=== PATIENT | male | born 1995 | race Caucasian/White ===

== ENCOUNTER 2017-08-04 10:02 | Emergency (ER) | payer OTHER ==
[~2017-08-04] VITALS: Wt 100.3 kg
[~2017-08-04 10:02] MED LIST: ACET500C5 PO; FIORICET PO; POLY10DR19 RIGHT EYE
[2017-08-04 11:31] LABS: BASOPHILS % 0.1 % (0.0-2.0); EOSINOPHILS # 0.1 10^3/ul (0.0-0.5); EOSINOPHILS % 0.4 % (0.0-7.0); HEMOGLOBIN 15.2 g/dl (14.0-18.0); LYMPHOCYTES # 2.5 10^3/ul (0.8-2.9); LYMPHOCYTES % 17.9 % (15.0-51.0); MEAN CORPUSCULAR HEMOGLOBIN 27.5 pg (29.0-33.0); MEAN CORPUSCULAR HGB CONC 33.8 g/dl (32.0-37.0); MEAN CORPUSCULAR VOLUME 81.5 fl (82.0-101.0); MEAN PLATELET VOLUME 9.7 fl (7.4-10.4); MONOCYTE # 1.5 10^3/ul (0.3-0.9); MONOCYTES % 10.6 % (0.0-11.0); NEUTROPHIL # 9.7 10^3/ul (1.6-7.5); NEUTROPHILS % 70.8 % (39.0-77.0); PLATELET COUNT 346 10^3/UL (140-415); RED BLOOD COUNT 5.52 10^6/ul (4.70-6.10); WHITE BLOOD COUNT 13.7 10^3/ul (4.8-10.8)
[2017-08-04 12:00] LABS: BARBITURATES Negative (NEGATIVE); BENZODIAZEPINES Negative (NEGATIVE); CANNABINOIDS Negative (NEGATIVE); COCAINE Negative (NEGATIVE); OPIATES Negative (NEGATIVE)
[2017-08-04 12:00] LABS: ALBUMIN 4.4 g/dl (3.3-4.9); ALBUMIN/GLOBULIN RATIO 1.46; BILIRUBIN,INDIRECT 0.4 mg/dl (0-1.1); BILIRUBIN,TOTAL 0.4 mg/dl (0.2-1.3); CALCIUM 9.6 mg/dl (8.4-10.2); CREATININE 0.66 mg/dl (0.61-1.24); POTASSIUM 4.6 mmol/L (3.5-5.1); TOTAL PROTEIN 7.4 g/dl (6.1-8.1)
--- NOTE | 2017-08-04 12:46 | RADRPT ---
PROCEDURE: CT Brain without. CLINICAL INDICATION: Near syncope, tremor. TECHNIQUE: A CT of the brain was performed on multidetector high-resolution CT scanner utilizing a xial sections from the skull base through the vertex without contrast. The scan was reviewed in sof t tissue brain and high frequency resolution bone algorithm windows. Images were reviewed on a high -resolution PACS workstation. One or more the following does reduction techniques were utilized: Aut omated exposure control, adjustment of the mA/ or kV according to patient's size, or use of iterativ e reconstruction technique. The exam CTDI = 43.16 mGy and the DLP = 720.23 mGy-cm. DICOM images are available. COMPARISON: None available. FINDINGS: The ventricles and sulci are age-appropriate. There is no intracranial hemorrhage, mass effect or mi dline shift. No abnormal intra-axial or extra-axial fluid collections are seen. The lancaster/white arelis er differentiation is preserved. No acute skull abnormality is noted. The visualized paranasal sinus es are essentially clear. IMPRESSION: 1. No acute intracranial hemorrhage, transcortical infarction or mass effect. RPTAT: HH .Enid Gallegos MD, MD Date Time Electronically viewed and signed by .Enid Gallegos MD, MD on 08/04/2017 12:46 .N/
--- NOTE | 2017-08-04 16:02 | ERD ---
ER Documentation Chief Complaint Chief Complaint shaky, feels faint HPI 21-year-old male complaining of bilateral hand "shaky" 2-3 weeks. The symptom is constant. Patient said that she he started having the symptoms after he started working for [employer]. Patient reports weight loss of 60 pounds in the past 5 month since he started working. Patient also reports several episodes of feeling dizzy at work. States that he usually do not eat breakfast before start working. Denies syncope. Denies chest pain or palpitations. Denies spinning sensation. Patient reports drinking alcohol frequently, usually 5 beers a night. Occasionally more when he is partying. Patient stated that he had not been drinking any alcohol for last 2-3 weeks. Denies any history of diabetes, hypertension, or other medical issues. ROS All systems reviewed and are negative except as per history of present illness. Medications Home Meds Active Scripts Acetaminophen* (Tylophen*) 500 Mg Capsule, 1 CAP PO Q6H Y for PAIN AND OR ELEVATED TEMP, #20 CAP Prov:JARED JIMENEZ PA-C 08/26/16 Acetamin/Butalbital/Caffeine* (Fioricet*) [id number] Tab, 1 TAB PO Q6H Y for PAIN, #5 TAB Prov:JARED JIMENEZ PA-C 08/26/16 Polymyxin B Sulfate-TMP* (Polymyxin B-TMP Eye Drops*) 10 Ml Drops, 1 DROP RIGHT EYE QID for 7 Days, EA Prov:FIDEL DUMONT PA-C 03/21/16 Allergies Allergies: Coded Allergies: No Known Allergy (Unverified , 09/23/13) PMhx/Soc Medical and Surgical Hx: pt denies Medical Hx, pt denies Surgical Hx History of Surgery: No Anesthesia Reaction: No Hx Neurological Disorder: No Hx Respiratory Disorders: No Hx Cardiac Disorders: No Hx Psychiatric Problems: No Hx Miscellaneous Medical Probl: No Hx Alcohol Use: Yes (INTERMITTENT BINGE) Hx Substance Use: No Hx Tobacco Use: No Smoking Status: Never smoker Physical Exam Vitals Vital Signs Date Time Temp Pulse Resp B/P Pulse Ox O2 Delivery O2 Flow Rate FiO2 08/04/17 10:11 99.0 118 20 173/89 100 Physical Exam General: Well-developed, well-nourished, conscious and coherent, in no distress Skin: Warm and dry without rash, good texture and turgor Head: Normocephalic without evidence of trauma Eyes: Sclera and conjunctivae normal; pupils equal, round, and reactive to light; extraocular movements are intact Chest: Normal AP diameter. Good expansion without retractions. Nontender. Lungs are clear to auscultate bilaterally with good tidal volume Heart: Regular rate and rhythm. No murmur, rub, or gallops heard Abdomen: Soft and nontender without masses, guarding, or rebound. Bowel sounds are active. No hepatosplenomegaly Extremities: Full range of motion. Good strength bilaterally. No clubbing, cyanosis, or edema. Peripheral pulses are intact. Sensation intact. Barely discernible fine tremors in bilateral hands noted when arms are all stretched. Neuro: Alert and oriented 4, GCS 15. Cranial nerves grossly intact. Motor and sensory exams nonfocal. Moves all extremities. Speech clear. Gait normal Result Diagram: 08/04/17 1115 08/04/17 1115 Results 24 hrs Laboratory Tests Test 08/04/17 11:05 08/04/17 11:15 Urine Opiates Screen Negative Urine Barbiturates Negative Urine Amphetamines Screen Negative Urine Benzodiazepines Screen Negative Urine Cocaine Screen Negative Urine Cannabinoids Negative White Blood Count 13.710^3/ul Red Blood Count 5.5210^6/ul Hemoglobin 15.2g/dl Hematocrit 45.0% Mean Corpuscular Volume 81.5fl Mean Corpuscular Hemoglobin 27.5pg Mean Corpuscular Hemoglobin Concent 33.8g/dl Red Cell Distribution Width 13.0% Platelet Count 84683^3/UL Mean Platelet Volume 9.7fl Neutrophils % 70.8% Lymphocytes % 17.9% Monocytes % 10.6% Eosinophils % 0.4% Basophils % 0.1% Nucleated Red Blood Cells % 0.0/100WBC Neutrophils # 9.710^3/ul Lymphocytes # 2.510^3/ul Monocytes # 1.510^3/ul Eosinophils # 0.110^3/ul Basophils # 0.010^3/ul Nucleated Red Blood Cells # 0.010^3/ul Sodium Level 142mmol/L Potassium Level 4.6mmol/L Chloride Level 105mmol/L Carbon Dioxide Level 26mmol/L Anion Gap 16 Blood Urea Nitrogen 13mg/dl Creatinine 0.66mg/dl Glucose Level 104mg/dl Calcium Level 9.6mg/dl Total Bilirubin 0.4mg/dl Direct Bilirubin 0.00mg/dl Indirect Bilirubin 0.4mg/dl Aspartate Amino Transf (AST/SGOT) 36IU/L Alanine Aminotransferase (ALT/SGPT) 57IU/L Alkaline Phosphatase 113IU/L Total Protein 7.4g/dl Albumin 4.4g/dl Globulin 3.00g/dl Albumin/Globulin Ratio 1.46 PROCEDURE: CT Brain without. CLINICAL INDICATION: Near syncope, tremor. TECHNIQUE: A CT of the brain was performed on multidetector high-resolution CT scanner utilizing axial sections from the skull base through the vertex without contrast. The scan was reviewed in soft tissue brain and high frequency resolution bone algorithm windows. Images were reviewed on a high- resolution PACS workstation. One or more the following does reduction techniques were utilized: Automated exposure control, adjustment of the mA/ or kV according to patient's size, or use of iterative reconstruction technique. The exam CTDI = 43.16 mGy and the DLP = 720.23 mGy-cm. DICOM images are available. COMPARISON: None available. FINDINGS: The ventricles and sulci are age-appropriate. There is no intracranial hemorrhage, mass effect or midline shift. No abnormal intra-axial or extra- axial fluid collections are seen. The lancaster/white matter differentiation is preserved. No acute skull abnormality is noted. The visualized paranasal sinuses are essentially clear. IMPRESSION: 1. No acute intracranial hemorrhage, transcortical infarction or mass effect. RPTAT: HH .Enid Gallegos MD, MD Date Time Electronically viewed and signed by .Enid Gallegos MD, MD on 08/04/2017 12: 46 .N/ CC: PATRICIA CHAVEZ [employer] INTERACTIVE [employer] Procedures/MDM Well-appearing 21-year-old male present ED with tremors in his bilateral hands 2-3 weeks. CBC, CMP, and CT head are unremarkable. Urine drug screen is negative. EKG: sinus rhythm with sinus arrhythmia, rate 94 bpm, normal axis. Short TX interval of [address] segment elevation or depression. No ectopic beats. No QT prolongation. No other EKG abnormalities. EKG read by Dr. Glez. I suspect patient's tremor may be related to alcohol withdrawal. I doubt brain tumor, stroke, Parkinson's. Patient did present with elevated blood pressure of 173/89. Repeat vital signs were requested to the nursing staff but was not done. I doubt patient has hypertensive emergency. Alcohol cessation counseling provided to the patient. Patient also advised to follow-up with his PCP for blood pressure monitoring and management. Patient appears well, stable for discharge and outpatient management. Medical decision making shared with patient and family. Education provided to patient and family. Patient and family expressed understanding of the plan. Medications on discharge: None. Follow-up: Primary care provider in 2-3 days or return to ED if worse. The case was reviewed and discussed with Dr. Glez, who agrees with the plan of care. Disclaimer: Inadvertent spelling and grammatical errors are likely due to EHR/ dictation software use and do not reflect on the overall quality of patient care. Also, please note that the electronic time recorded on this note does not necessarily reflect the actual time of the patient encounter. Departure Diagnosis: Primary Impression: Tremor Condition: Stable Patient Instructions: Signs of Alcohol Addiction (Alcoholism), Alcohol Withdrawal: What to Expect Referrals: [facility] YOU HAVE RECEIVED A MEDICAL SCREENING EXAM AND THE RESULTS INDICATE THAT YOU DO NOT HAVE A CONDITION THAT REQUIRES URGENT TREATMENT IN THE EMERGENCY DEPARTMENT. FURTHER EVALUATION AND TREATMENT OF YOUR CONDITION CAN WAIT UNTIL YOU ARE SEEN IN YOUR DOCTORS OFFICE WITHIN THE NEXT 1-2 DAYS. IT IS YOUR RESPONSIBILITY TO MAKE AN APPOINTMENT FOR FOLOW-UP CARE. IF YOU HAVE A PRIMARY DOCTOR --you should call your primary doctor and schedule an appointment IF YOU DO NOT HAVE A PRIMARY DOCTOR YOU CAN CALL OUR PHYSICIAN REFERRAL HOTLINE AT IF YOU CAN NOT AFFORD TO SEE A PHYSICIAN YOU CAN CHOSE FROM THE FOLLOWING [facility] [address] [place] [facility] [address] [facility]. [facility] [address] [facility] [address] [facility]. [facility] [address] [facility]. [facility] [address] Additional Instructions: Call your primary care doctor TOMORROW for an appointment during the next 2-3 days.See the doctor sooner or return here if your condition worsens before your appointment time. PATRICIA CHAVEZ. MARGO Aug 04, 2017 16:01
== END 2017-08-04 13:22 | disposition home or self-care (01) ==
LOC: FTE 10:02
DX: R25.1 Tremor, unspecified (principal); R55 Syncope and collapse
CPT/HCPCS: 70450; 80053; 80307; 85025; 93005; Z7502

== ENCOUNTER 2017-09-06 10:13 | Emergency (ER) | payer OTHER ==
[~2017-09-06] VITALS: Ht 175.3 cm; Wt 97.5 kg
[2017-09-06 10:16] VITALS: Ht 175.3 cm; Wt 97.5 kg
--- NOTE | 2017-09-06 12:30 | ERD ---
ER Documentation Chief Complaint Chief Complaint feeling anxiuos , shaky , vomit x 1 with streaks of blood today HPI 21-year-old male who presents emergency department for chest pressure, vomiting , stated that he noticed that there is a streak of blood when he vomited this morning. Denies headache, dizziness, neck pain, throat pain, shoulder pain, back pain, abdominal pain, constipation, diarrhea, urinary symptoms, loss of bowel and bladder control, difficulty breathing when lying flat, recent travel, recent long travel, recent exposure to any illness, recent antibiotic use in the last 3 months, fever, chills. ROS All systems reviewed and are negative except as per history of present illness. Medications Home Meds Active Scripts Hydroxyzine Hcl* (Hydroxyzine Hcl*) 50 Mg Tablet, 50 MG PO Q6 Y for ANXIETY, # 30 TAB Prov:LUIS JAMISON 09/06/17 Acetaminophen* (Tylophen*) 500 Mg Capsule, 1 CAP PO Q6H Y for PAIN AND OR ELEVATED TEMP, #20 CAP Prov:JARED JIMENEZ PA-C 08/26/16 Acetamin/Butalbital/Caffeine* (Fioricet*) [id number] Tab, 1 TAB PO Q6H Y for PAIN, #5 TAB Prov:JARED JIMENEZ PA-C 08/26/16 Polymyxin B Sulfate-TMP* (Polymyxin B-TMP Eye Drops*) 10 Ml Drops, 1 DROP RIGHT EYE QID for 7 Days, EA Prov:FIDEL DUMONT PA-C 03/21/16 Allergies Allergies: Coded Allergies: No Known Allergy (Unverified , 09/06/17) PMhx/Soc Medical and Surgical Hx: pt denies Medical Hx, pt denies Surgical Hx History of Surgery: No Anesthesia Reaction: No Hx Neurological Disorder: No Hx Respiratory Disorders: No Hx Cardiac Disorders: No Hx Psychiatric Problems: No Hx Miscellaneous Medical Probl: No Hx Alcohol Use: Yes (DRUNK ALCOHOL YESTERDAY) Hx Substance Use: No Hx Tobacco Use: No Smoking Status: Never smoker Physical Exam Vitals Vital Signs Date Time Temp Pulse Resp B/P Pulse Ox O2 Delivery O2 Flow Rate FiO2 09/06/17 10:16 98.3 83 18 157/80 98 Physical Exam Const: Well-appearing. Not in respiratory distress. Feels anxious. Head: Atraumatic Eyes: Normal Conjunctiva ENT: Normal External Ears, Nose and Mouth. Throat: Uvula is midline nondisplaced. Tonsils are +1 bilaterally without redness without exudates. No tooth or teeth avulsion. No oral trauma. Tolerating secretions. Patent airway. Speaks full and clear sentences. Neck: Full range of motion..~ No meningismus. Resp: Clear to auscultation bilaterally Cardio: Regular rate and rhythm, no murmurs Abd: Soft, non tender, non distended. Normal bowel sounds Skin: No petechiae or rashes Back: No midline or flank tenderness Ext: No cyanosis, or edema Neur: Awake and alert Psych: Normal Mood and Affect Results 24 hrs Current Medications Medications (Trade) Dose Ordered Sig/Robby Route PRN Reason Start Time Stop Time Status Last Admin Dose Admin Lorazepam (Ativan) 1 mg ONCE ONCE PO 09/06/17 13:00 09/06/17 13:01 DC 09/06/17 12:40 Procedures/MDM EKG: Normal sinus rhythm. No STEMI. Read by supervising physician, Dr. Bhasakr Glez. Differential I have low suspicion for acute myocardial infarction, acute coronary syndrome, pneumonia given that the patient is well-appearing, young, vital signs are stable Final diagnosis: Anxiety. Prescription: Hydroxyzine. Follow-up with PCP in the next 3-4 days. Come back here in the emergency department for any new symptoms or any worsening of symptoms. All questions and concerns are answered. Patient verbalized understanding and agreed with the plan of care. Hemodynamically stable on discharge. Departure Diagnosis: Primary Impression: Anxiety Condition: Stable Additional Instructions: Prescription: Hydroxyzine. Follow-up with PCP in the next 3-4 days. Come back here in the emergency department for any new symptoms or any worsening of symptoms. All questions and concerns are answered. Patient verbalized understanding and agreed with the plan of care. LUIS JAMISON Sep 06, 2017 12:30
[2017-09-06] MEDS ORDERED: HYDR-3012 PO (12:38)
[2017-09-06] MEDS ORDERED: LORAZEPAM 1 MG TAB PO ONE (13:00)
== END 2017-09-06 12:58 | disposition home or self-care (01) ==
LOC: FTE 10:13
DX: F41.9 Anxiety disorder, unspecified (principal)
CPT/HCPCS: 93005; Z7502; Z7610

== ENCOUNTER 2017-09-16 13:12 | Emergency (ER) | payer SELFPAY ==
[~2017-09-16] VITALS: Ht 152.4 cm; Wt 100.2 kg
[~2017-09-16 13:12] MED LIST changes: +HYDR-3012 PO
[2017-09-16 13:24] VITALS: Ht 152.4 cm; Wt 100.2 kg
== END 2017-09-16 17:16 | disposition left against medical advice (07) ==
LOC: FTE 13:12
DX: Z53.21 Procedure and treatment not carried out due to patient leaving prior to being seen by health care provider (principal)

== ENCOUNTER 2017-11-17 10:12 | Emergency (ER) | END 2017-11-17 15:00 | disposition left against medical advice (07) ==

== ENCOUNTER 2017-12-01 08:26 | Emergency (ER) | END 2017-12-01 12:55 | disposition home or self-care (01) ==

== ENCOUNTER 2018-01-12 14:17 | Emergency (ER) | END 2018-01-13 00:50 | disposition home or self-care (01) ==

== ENCOUNTER 2018-06-29 10:01 | Emergency (ER) | END 2018-06-29 11:30 | disposition home or self-care (01) ==

== ENCOUNTER 2018-11-22 19:16 | Emergency (ER) | payer SELFPAY ==
[~2018-11-22] VITALS: Ht 172.7 cm; Wt 104.0 kg
[~2018-11-22 19:16] MED LIST changes: +ATEN-51 PO; -HYDR-3012 PO; +HYDR50TA15 PO; +RANI150T35 PO; +TYL500 PO
[2018-11-22 19:41] VITALS: BP 168/77; PULSE 86; RESP 18; Ht 172.7 cm; Wt 104.0 kg
[2018-11-23] MEDS ORDERED: MUPI15CR9 TOP (11:42)
[2018-11-23] MEDS ORDERED: MUPI22OI2 TOP (11:43)
== END 2018-11-22 21:17 | disposition left against medical advice (07) ==
LOC: FTE 19:16
DX: Z53.21 Procedure and treatment not carried out due to patient leaving prior to being seen by health care provider (principal)

== ENCOUNTER 2018-11-23 09:50 | Emergency (ER) | payer OTHER ==
[~2018-11-23] VITALS: Ht 175.3 cm; Wt 103.4 kg
[2018-11-23 10:08] VITALS: BP 146/79; PULSE 60; RESP 20; Ht 175.3 cm; Wt 103.4 kg
[2018-11-23] MEDS ORDERED: LIDOCAINE 2% JELLY 5 ML TOP ONE (11:30)
[2018-11-23] MEDS ORDERED: DIPHTH/TET/ACEL PERTUSS (ADULT) 0.5 ML VIAL IM* ONE (11:30)
[2018-11-23] MEDS ORDERED: BACITRACIN 0.9 GM OINT TOP ONE (11:30)
[2018-11-23] MEDS ORDERED: MUPI15CR9 TOP (11:42)
[2018-11-23] MEDS ORDERED: MUPI22OI2 TOP (11:43)
--- NOTE | 2018-11-23 14:05 | ERD ---
ER Documentation Chief Complaint Chief Complaint Complains of a laceration on the index finger since HPI 23 year-old male coming in today with Chief Complaint: laceration History of Present Illness: Patient coming in today with complaint of laceration to index finger. Patient reports that he cut his finger while in the kitchen using a knife at approximately 7pm last night. Tetanus status unknown. Denies any other associated symptoms. No medications at home for symptoms. Review of systems: All systems were reviewed and are negative except for what is indicated in the history of present illness. Past Medical History: Graves' disease Social History: Patient denies tobacco, alcohol, elicit drug use Medications: Reviewed as documented Nursing Notes Allergies: NKDA Social Concerns: Denies ROS All systems reviewed and are negative except as per history of present illness. Medications Home Meds Active Scripts Mupirocin* (Bactroban*) 2% -22 Gram Oint...g., 1 APPLIC TOP TID for INFECTON PREVENTION for 3 Days, #1 TUB SITE OF APPLICATION: Prov:MIRIAM MARMOLEJO NP 11/23/18 Acetaminophen* (Tylenol*) 500 Mg Tab, 500 MG PO Q4H PRN for MILD PAIN LEVEL 1-3, #30 TAB Prov:GEORGE MEYERS DO 10/31/18 Ranitidine Hcl* (Zantac*) 150 Mg Tablet, 150 MG PO BID PRN for EPIGASTRIC PAIN for 5 Days, #10 TAB Prov:POLI HOANG MD 06/29/18 Atenolol* (Atenolol*) 25 Mg Tablet, 25 MG PO BID, #60 TAB Prov:IVAN HENSLEY PA-C 01/12/18 Atenolol* (Atenolol*) 25 Mg Tablet, 25 MG PO BID, #60 TAB Prov:VILMA VEGA PA-C 12/01/17 Hydroxyzine Hcl* (Hydroxyzine Hcl*) 50 Mg Tablet, 50 MG PO Q6 PRN for ANXIETY, #30 TAB Prov:LUIS JAMISON 09/06/17 Acetaminophen* (Tylophen*) 500 Mg Capsule, 1 CAP PO Q6H PRN for PAIN AND OR ELEVATED TEMP, #20 CAP Prov:JARED JIMENEZ PA-C 08/26/16 Acetamin/Butalbital/Caffeine* (Fioricet*) [id number] Tab, 1 TAB PO Q6H PRN for PAIN, #5 TAB Prov:JARED JIMENEZ PA-C 08/26/16 Polymyxin B Sulfate-TMP* (Polymyxin B-TMP Eye Drops*) 10 Ml Drops, 1 DROP RIGHT EYE QID for 7 Days, EA Prov:FIDEL DUMONT PA-C 03/21/16 Allergies Allergies: Coded Allergies: No Known Allergy (Unverified , 09/06/17) PMhx/Soc History of Surgery: No Anesthesia Reaction: No Hx Neurological Disorder: No Hx Respiratory Disorders: No Hx Cardiac Disorders: No Hx Psychiatric Problems: No Hx Miscellaneous Medical Probl: Yes (HTN) Hx Alcohol Use: Yes Hx Substance Use: No Hx Tobacco Use: No FmHx Family History: No diabetes, No coronary disease Physical Exam Vitals Vital Signs Date Temp Pulse Resp B/P (MAP) Pulse Ox O2 O2 Flow FiO2 Time Delivery Rate 11/23/18 97.8 60 20 146/79 98 10:08 (101) Physical Exam Const: No acute distress Head: Atraumatic Eyes: Normal Conjunctiva ENT: Normal External Ears, Nose and Mouth. Neck: Full range of motion. No meningismus. Resp: Clear to auscultation bilaterally Cardio: Regular rate and rhythm, no murmurs Abd: Soft, non tender, non distended. Normal bowel sounds Skin: No petechiae or rashes. 1 cm mild laceration noted to palmar aspect of index finger of left hand. Bleeding controlled. No Tendon involvement, Patient able to bend finger without difficulty. NVI distally. Back: No midline or flank tenderness Ext: No cyanosis, or edema Neur: Awake and alert Psych: Normal Mood and Affect Results 24 hrs Current Medications Medications Dose Sig/Robby Start Time Status Last (Trade) Ordered Route PRN Stop Time Admin Dose Reason Admin Diphtheria/ 0.5 ml ONCE ONCE 11/23/18 DC 11/23/18 Tetanus/Acell IM* 11:30 11/23/18 11:57 Pertussis 11:31 (Adacel) Bacitracin 1 applic ONCE ONCE 11/23/18 DC 11/23/18 (Bacitracin TOP 11:30 11/23/18 11:57 Oint (Ud)) 11:31 Lidocaine 1 applic ONCE ONCE 11/23/18 DC 11/23/18 (Xylocaine TOP 11:30 11/23/18 11:57 2% Jelly) 11:31 Procedures/MDM ED course includes a thorough examination and history. ED course includes wound cleaning as ordered. ED course includes tetanus prophylaxis. ED Course includes medication; bacitracin. Low suspicion for life threatening medical emergency or tendon damage to finger or neurovascular compromise. Otherwise healthy patient presenting with constellation of symptoms likely representing uncomplicated laceration as characterized by history, physical exam findings. Due to wound being over 12 hours old, will not do suture repair due to increased risk of infection. Patient educated on signs to look for for infection. Verbalizes understanding. No respiratory distress, otherwise relatively well appearing and nontoxic. Patient educated on diagnoses, prescriptions, follow-up care, return precautions. Strict return precautions given for worsening condition; questions answered discharge. Disposition for discharge with followup in 2-3 days with PCP/clinic for wound check. Departure Diagnosis: Primary Impression: Laceration of finger, index Encounter type: initial encounter Damage to nail status: without damage Foreign body presence: without foreign body Laterality: left Qualified Codes: S61.211A - Laceration without foreign body of left index finger without damage to nail, initial encounter Condition: Stable Patient Instructions: Laceration, Hand, Laceration, Old (Not Sutured) Referrals: [facility] YOU HAVE RECEIVED A MEDICAL SCREENING EXAM AND THE RESULTS INDICATE THAT YOU DO NOT HAVE A CONDITION THAT REQUIRES URGENT TREATMENT IN THE EMERGENCY DEPARTMENT. FURTHER EVALUATION AND TREATMENT OF YOUR CONDITION CAN WAIT UNTIL YOU ARE SEEN IN YOUR DOCTORS OFFICE WITHIN THE NEXT 1-2 DAYS. IT IS YOUR RESPONSIBILITY TO M FAUZIA AN APPOINTMENT FOR FOLOW-UP CARE. IF YOU HAVE A PRIMARY DOCTOR --you should call your primary doctor and schedule an appointment IF YOU DO NOT HAVE A PRIMARY DOCTOR YOU CAN CALL OUR PHYSICIAN REFERRAL HOTLINE AT IF YOU CAN NOT AFFORD TO SEE A PHYSICIAN YOU CAN CHOSE FROM THE FOLLOWING [facility] [address] [facility] [address] [place] [place] [address] [facility] [address] [facility] [address] [facility]. [facility] [address] [facility]. [facility] YOU HAVE RECEIVED A MEDICAL SCREENING EXAM AND THE RESULTS INDICATE THAT YOU DO NOT HAVE A CONDITION THAT REQUIRES URGENT TREATMENT IN THE EMERGENCY DEPARTMENT. FURTHER EVALUATION AND TREATMENT OF YOUR CONDITION CAN WAIT UNTIL YOU ARE SEEN IN YOUR DOCTORS OFFICE WITHIN THE NEXT 1-2 DAYS. IT IS YOUR RESPONSIBILITY TO MAKE AN APPOINTMENT FOR FOLOW-UP CARE. IF YOU HAVE A PRIMARY DOCTOR --you should call your primary doctor and schedule and appointment IF YOU DO NOT HAVE A PRIMARY DOCTOR YOU CAN CALL OUR PHYSICIAN REFERRAL HOTLINE AT . IF YOU CAN NOT AFFORD TO SEE A PHYSICIAN YOU CAN CHOSE FROM THE FOLLOWING [facility]: [facility] [address] [place] [address] [facility] [address] [place] [address] [facility] [address] [place] [address] Additional Instructions: Call your primary care doctor TOMORROW for an appointment during the next 2-3 days for a wound check to ensure you don't have infection.See the doctor sooner or return here if your condition worsens before your appointment time. If redness, warmth, pus, severe pain; return to ER or seek medical attention. Apply antibiotic ointment for 2 days and cover; then allow to air dry starting day 3. MIRIAM MARMOLEJO NP Nov 23, 2018 14:05
== END 2018-11-23 13:32 | disposition home or self-care (01) ==
LOC: FTE 09:50
DX: S61.211A Laceration without foreign body of left index finger without damage to nail, initial encounter (principal); I10 Essential (primary) hypertension; W26.0XXA Contact with knife, initial encounter; Y92.000 Kitchen of unspecified non-institutional (private) residence as the place of occurrence of the external cause; Z23 Encounter for immunization
CPT/HCPCS: 90471; 90715; Z7502; Z7610